=== PATIENT | female | born 1985 | race Caucasian/White ===

== ENCOUNTER 2021-11-15 19:56 | Inpatient (IN) ==
[2021-11-15] MEDS ORDERED: OXYTOCIN/LR 20 UNIT/1,000 ML BAG IV PRN (20:05)
[2021-11-15] MEDS ORDERED: ONDANSETRON 4 MG/2 ML VIAL IV PRN (20:05)
[2021-11-15] MEDS ORDERED: DINOPROSTONE 10 MG VAG.INSERT VAG ONE (20:05)
[2021-11-15] MEDS ORDERED: miSOPROStoL 200 MCG TABLET RECTAL PRN (20:05)
[2021-11-15] MEDS ORDERED: CARBOPROST TROMETHAMINE 250 MCG/ML AMP IM PRN (20:05)
[2021-11-15] MEDS ORDERED: TRANEXAMIC ACID 1,000 MG in SODIUM CHLORIDE 0.9% 100 ML IV PRN (20:05)
[2021-11-15] MEDS ORDERED: METHYLERGONOVINE 0.2 MG/1 ML AMP IM PRN (20:05)
[2021-11-15 20:35] LABS: Basophils % 0.4 % (0.0-0.8); Eosinophils # 0.1 10*3/uL (0.0-0.87); Eosinophils % 1.3 % (0.00-10.9); Hematocrit 33.5 VOL% (35.7-47.0); Hemoglobin 11.3 GM/DL (12.0-16.0); Immature Granulocytes % 0.8 %; Immature Granulocytes Absolute 0.07 #; Lymphocytes # 2.4 10*3/uL (1.4-4.0); Lymphocytes % 25.3 % (21.3-54.2); Mean Corpuscular HGB Conc 33.7 GM/DL (32-36); Mean Corpuscular Volume 82.9 FL (87-102); Mean Platelet Volume 10.3 FL (9.6-12.0); Monocytes # 0.8 10*3/uL (0.11-0.8); Neutrophils % 64.2 % (38.7-73.9); Platelet Count 224 T/CUMM (130-400); Red Blood Count 4.04 MC/CUMM (3.8-5.5); Red Cell Distribution Width 13.4 % (9.3-17.3); White Blood Count 9.3 T/CUMM (4-12)
[2021-11-15 20:56] LABS: Alanine Aminotransferase 11 U/L (13-56); Albumin 2.4 G/DL (3.4-5.0); Alkaline Phosphatase 164 U/L (45-117); Aspartate Amino Transferase 16 U/L (0-37); Bilirubin,Total < 0.39 MG/DL (0.20-1.00); Blood Urea Nitrogen 6 MG/DL (7-18); Calcium 8.7 MG/DL (8.5-10.1); Carbon Dioxide 21 MMOL/L (21-32); Chloride 109 MMOL/L (98-107); Glucose 93 MG/DL (74-106); Osmolality,Calculated 274.5 MOS/KG (273-304); Potassium 3.8 MMOL/L (3.5-5.1); Sodium 139 MMOL/L (136-145); Total Protein 6.4 G/DL (6.4-8.2)
[2021-11-16] MEDS: LACTATED RINGERS 1,000 ML IV SCH ×2 (02:01→05:05)
[2021-11-16] MEDS: BUTORPHANOL 2 MG/ML VIAL IV PRN ×2 (02:02→04:41)
[2021-11-16] MEDS ORDERED: ePHEDrine 50 MG/ML VIAL IV PRN (05:01)
[2021-11-16] MEDS ORDERED: NALOXONE 0.4 MG/ML VIAL IV PRN (05:01)
[2021-11-16] MEDS ORDERED: PROMETHAZINE 25 MG/1 ML VIAL IM PRN (05:01)
[2021-11-16] MEDS ORDERED: hydrOXYzine HCL 25 MG/1 ML VIAL IM PRN (05:01)
[2021-11-16] MEDS ORDERED: diphenhydrAMINE 50 MG/1 ML VIAL IV PRN ×2 (05:01)
[2021-11-16] MEDS ORDERED: FAMOTIDINE 20 MG/2 ML VIAL IV ONE (05:02)
[2021-11-16] MEDS ORDERED: CITRIC ACID/SODIUM CITRATE 30 ML UDCUP PO ONE (05:02)
[2021-11-16] MEDS ORDERED: OXYTOCIN/LR 20 UNIT/1,000 ML BAG IV PRN (05:14)
[2021-11-16] MEDS ORDERED: fentaNYL 2 MCG/ROPIV 0.2% EPID 100 ML EPIDURAL SCH (05:30)
[2021-11-16 07:32] LABS: Mucus,Urine Moderate /LPF (Occasional); RBC,Urine 1 /HPF (0-4); Squamous Epithelial Cell,Urine Occasional /HPF (0-10)
[2021-11-16 07:34] LABS: Bilirubin,Urine Negative (Negative); Blood, Urine Negative (Negative); Glucose,Urine (UA) Negative (Negative); Ketones,Urine Negative (Negative); Nitrite,Urine Negative (Negative); Protein,Urine Negative (Negative); Urine Appearance Clear (Clear); Urine Color Yellow (Yellow); Urine Specific Gravity 1.025 (1.001-1.035); Urine Urobilinogen 0.2 eU/dL (<2.0); Urine pH 5.5 (4.5-8.0)
[2021-11-16] MEDS ORDERED: TRANEXAMIC ACID 1,000 MG in SODIUM CHLORIDE 0.9% 100 ML IV PRN (08:27)
[2021-11-16] MEDS ORDERED: OXYTOCIN/LR 20 UNIT/1,000 ML BAG IV ONE ×2 (08:27→10:07)
[2021-11-16] MEDS ORDERED: ceFAZolin 3,000 MG in SYRINGE 1 EACH IV ONE (08:27)
[2021-11-16] MEDS ORDERED: METHYLERGONOVINE 0.2 MG/1 ML AMP IM PRN (08:27)
[2021-11-16] MEDS ORDERED: miSOPROStoL 200 MCG TABLET RECTAL PRN (08:27)
[2021-11-16] MEDS ORDERED: CARBOPROST TROMETHAMINE 250 MCG/ML AMP IM PRN (08:27)
[2021-11-16] MEDS ORDERED: miSOPROStoL 200 MCG TABLET ONE (08:56)
[2021-11-16] MEDS ORDERED: TRANEXAMIC ACID 1,000 MG/10 ML VIAL ONE (08:56)
[2021-11-16] MEDS ORDERED: SODIUM CHLORIDE 0.9% 0 ML IV ONE (08:56)
[2021-11-16] MEDS ORDERED: METHYLERGONOVINE 0.2 MG/1 ML AMP ONE (08:57)
[2021-11-16] MEDS ORDERED: CARBOPROST TROMETHAMINE 250 MCG/ML AMP IM ONE (08:57)
[2021-11-16 09:32] LABS: Cord Arterial Blood HCO3 20.9 MMOL/L
[2021-11-16 09:35] LABS: Cord Venous Blood HCO3 20.8 MMOL/L; Cord Venous Blood PCO2 49.2 MMHG; Cord Venous Blood PO2 24.2
[2021-11-16] MEDS ORDERED: oxyCODONE/ACETAMINOPHEN 5-325 MG TABLET PO PRN (10:07)
[2021-11-16] MEDS ORDERED: ONDANSETRON 4 MG/2 ML VIAL IV PRN (10:07)
[2021-11-16] MEDS ORDERED: HYDROCORTISONE 2.5% RECTAL CREAM 30 GM TUBE TOP PRN (10:07)
[2021-11-16] MEDS ORDERED: BENZOCAINE 20%/MENTHOL 0.5% SPRAY 56 GM CAN TOP PRN (10:07)
[2021-11-16] MEDS ORDERED: WITCH HAZEL PADS 100/JAR TOP PRN (10:07)
[2021-11-16] MEDS ORDERED: ACETAMINOPHEN 325 MG TABLET PO PRN (10:07)
[2021-11-16] MEDS ORDERED: BISACODYL 10 MG SUPP RECTAL PRN (10:07)
[2021-11-16] MEDS ORDERED: LANOLIN 50% CREAM 0.3 OZ TUBE TOP PRN (10:07)
[2021-11-16] MEDS ORDERED: MEASLES/MUMPS/RUBELLA VACCINE 0.5 ML VIAL SUBCUT ONE (10:07)
[2021-11-16] MEDS ORDERED: IBUPROFEN 800 MG TABLET PO PRN (10:07)
[2021-11-16] MEDS ORDERED: DIPH/TET/ACEL PERT BOOSTER VACCINE 0.5 ML VIAL IM ONE (10:07)
[2021-11-16] MEDS ORDERED: RHO(D) IMMUNE GLOBULIN 300 MCG SYRINGE IM ONE (10:07)
[2021-11-16] MEDS: DOCUSATE SODIUM 100 MG CAPSULE PO SCH (21:20)
[2021-11-16] MEDS: oxyCODONE/ACETAMINOPHEN 5-325 MG TABLET PO PRN (23:54)
[2021-11-17 06:54] LABS: Basophils # 0.1 10*3/uL (0.0-0.2); Basophils % 0.5 % (0.0-0.8); Eosinophils # 0.1 10*3/uL (0.0-0.87); Hematocrit 29.8 VOL% (35.7-47.0); Immature Granulocytes % 0.5 %; Immature Granulocytes Absolute 0.05 #; Lymphocytes # 2.1 10*3/uL (1.4-4.0); Lymphocytes % 20.8 % (21.3-54.2); Mean Corpuscular HGB Conc 33.6 GM/DL (32-36); Mean Corpuscular Volume 84.2 FL (87-102); Mean Platelet Volume 10.6 FL (9.6-12.0); Monocytes # 0.7 10*3/uL (0.11-0.8); Monocytes % 7.3 % (1.7-12.7); Neutrophils % 69.9 % (38.7-73.9); Red Blood Count 3.54 MC/CUMM (3.8-5.5); Red Cell Distribution Width 13.6 % (9.3-17.3); White Blood Count 10.1 T/CUMM (4-12)
[2021-11-17 06:59] LABS: Platelet Count 164 T/CUMM (130-400)
[2021-11-17] MEDS: DOCUSATE SODIUM 100 MG CAPSULE PO SCH ×2 (08:25→21:18)
[2021-11-17] MEDS: oxyCODONE/ACETAMINOPHEN 5-325 MG TABLET PO PRN (20:11)
[2021-11-18 07:24] VITALS: BP 125/77
[2021-11-18] MEDS: DOCUSATE SODIUM 100 MG CAPSULE PO SCH (07:42)
[2021-11-18] MEDS ORDERED: INFLUENZA VIRUS VACCINE 0.5 ML SYRINGE IM ONE (08:00)
== END 2021-11-18 11:45 | disposition home or self-care (01) | DRG 807 ==
LOC: N.LDOUT 19:56 → N.LD 19:59 → N.OB 11-16 12:25
PROVIDERS: ADMIT Obstetrics & Gynecology; ATTEND Obstetrics & Gynecology